=== PATIENT | male | born 1965 ===

== ENCOUNTER → 2023-07-16 09:21 | Outpatient (CLI) | payer SELFPAY | PROVIDERS: PCP Family Medicine; Visit Provider Family Medicine | DX: R10.9 Unspecified abdominal pain (principal); R50.9 Fever, unspecified | CPT/HCPCS: 87086 ==

== ENCOUNTER → 2023-07-16 12:09 | Outpatient (CLI) | payer OTHER, SELFPAY ==
--- NOTE | 2023-07-16 | DI.US.S_ITS ---
PROCEDURE: US RENAL COMPLETE INDICATIONS: FLANK PAIN, FEVER TECHNIQUE: Real-time scanning was performed of the kidneys and bladder, with image documentation. COMPARISON: None. FINDINGS: Kidneys: Kidneys are normal in size. Right kidney measures 8.3 cm long; left kidney measures 9.9 cm long. Right renal cortical thickness is 1.5 cm; left renal cortical thickness is 2.0 cm. Inferior pole right kidney is not seen. Left kidney is not well seen. Renal cortical echotexture is normal as visualized. No hydronephrosis or nephrolithiasis. No suspicious solid mass lesions. Bladder: Pre-void bladder volume is 93 mL. Post-void residual is 4 mL. Pre-void images demonstrate no intraluminal masses or stones. On pre-void images, no ureteral jets are noted with color Doppler interrogation. (Of note, ureteral jets may not be detectable in up to 25% of cases due to insufficient differences in specific gravity between ureteral and bladder urine). Miscellaneous: No free pelvic fluid. IMPRESSION: 1. Limited examination demonstrating no definite acute process. Dictated by: Joy Mosher M.D. on 07/16/2023 at 14:37 Approved by: Joy Mosher M.D. on 07/16/2023 at 14:39
[2023-07-16 14:16] LABS: Hematocrit 29.9 % (41-53); Hemoglobin 9.5 g/dL (13.5-17.5); Mean Corpuscular HGB Conc 31.8 % (30-36); Mean Corpuscular Hemoglobin 30.9 PG (26-34); Mean Corpuscular Volume 97.1 fL (80-100); Platelet Count 40 X10^3/uL (150-400); Red Blood Cell Count 3.08 X10^6/uL (4.5-5.9); Red Cell Distribution Width 16.4 % (11.6-14.8)
[2023-07-16 14:37] LABS: Alanine Aminotransferase 43 IU/L (<50); Albumin 3.4 g/dL (3.5-5.0); Alkaline Phosphatase 87 U/L (38-126); Aspartate Aminotransferase 54 IU/L (17-59); BUN Creatinine Ratio 14.7 (6-22); Bilirubin Total 0.6 mg/dL (0.2-1.3); Blood Urea Nitrogen 14 mg/dL (9-20); Calcium 8.8 mg/dL (8.4-10.2); Carbon Dioxide 25 mmol/L (22-32); Chloride 97 mmol/L (98-107); Estimated Glomerular Filt Rate > 60 mL/min (>60); Globulin 3.5 g/dL (1.7-4.1); Glucose 109 mg/dL (70-100); HEMOLYSIS < 15 (0-50); Potassium 3.5 mmol/L (3.4-5.1); Sodium 132 mmol/L (137-145); Total Protein 6.9 g/dL (6.3-8.2)
[2023-07-16 14:45] LABS: Add Manual Diff / Slide Review YES; White Blood Cell Count 112.1 X10^3/uL (4.5-11.0)
[2023-07-16 15:13] LABS: Neutrophils Absolute Manual 2242 /uL (3000-5900); Total Cells Counted 100
[2023-07-16 15:14] LABS: Anisocytosis 1+; Smudge Cells 1+
[2023-07-16 15:16] LABS: Platelet Estimate Decreased on smear
== END ==
PROVIDERS: PCP Family Medicine; Referring Provider Family Medicine; Visit Provider Family Medicine
DX: R50.9 Fever, unspecified (principal); R10.9 Unspecified abdominal pain
CPT/HCPCS: 36415; 76770; 80053; 85007; 85025; 87086

== ENCOUNTER 2023-07-25 12:36 | Emergency (ER) | payer OTHER, SELFPAY ==
[2023-07-25] VITALS (65 sets, daily range): BP systolic 81–177; BP diastolic 50–92; PULSE 79–133; RESP 0–32; TEMP 36.9–40.2; O2SAT 50–99; BMI 25.7
--- NOTE | 2023-07-25 12:54 | DI.RAD.S_ITS ---
PROCEDURE: XR CHEST 1V INDICATIONS: SOB TECHNIQUE: One view of the chest was acquired. COMPARISON: None. FINDINGS: Surgical changes and devices: None. Lungs and pleura: Submaximal inspiration. Patchy bilateral atelectasis. No pleural effusions or pneumothorax. Mediastinum: Mediastinal contours appear normal. Heart size is normal. Bones and chest wall: No suspicious bony lesions. Overlying soft tissues appear unremarkable. IMPRESSION: Submaximal inspiration with patchy bilateral atelectasis. Dictated by: Andrew Montero M.D. on 07/25/2023 at 13:39 Approved by: Andrew Montero M.D. on 07/25/2023 at 13:41
--- NOTE | 2023-07-25 12:54 | DI.CT.S_ITS ---
PROCEDURE: CT ANGIO CHEST PE PROTOCOL INDICATIONS: assess for PE, PNA, mestastatic disease TECHNIQUE: After the administration of intravenous contrast, 2 mm thick sections acquired from the pulmonary apices to the posterior costophrenic angles. 3-dimensional maximum intensity projection (MIP) coronal and sagittal reformats were then acquired through the thorax. For radiation dose reduction, the following was used: automated exposure control, adjustment of mA and/or kV according to patient size. COMPARISON: None. FINDINGS: Image quality: Diagnostic. Pulmonary arteries: Pulmonary arteries are normal in size, and demonstrate no intraluminal filling defects to suggest central pulmonary embolism. Lower Neck: No enlarged lymph nodes. Thyroid: No thyroid nodules which require sonographic follow up, per consensus guidelines. Axillae: No enlarged lymph nodes. Chest Wall: Unremarkable. Bones: Unremarkable. Lungs and Pleura: Small bilateral pleural effusions. Compressive bibasilar atelectasis. Heart: Heart size is normal. No pericardial effusion. Thoracic Vessels: No aortic aneurysm. Mediastinum and Letty: Shotty nonspecific mediastinal and hilar adenopathy. Esophagus: No wall thickening. No hiatal hernia. Upper Abdomen: Liver and spleen incompletely imaged. Splenomegaly. Question hepatomegaly. IMPRESSION: 1. No acute pulmonary emboli. 2. Small bilateral pleural effusions. Bibasilar atelectasis. 3. Shotty mediastinal and hilar adenopathy, nonspecific. 4. Splenomegaly, question hepatomegaly. Dictated by: Andrew Montero M.D. on 07/25/2023 at 14:11 Approved by: Andrew Montero M.D. on 07/25/2023 at 14:21
--- NOTE | 2023-07-25 13:02 | ED_ITS ---
HPI - General Adult <Pedro Munoz MD - Last Filed: 07/26/23 07:50> General Chief complaint: Shortness of Breath/Dyspnea Stated complaint: shallow breath, hand,feet blue, Dx Leukemia Time Seen by Provider: 07/25/23 12:42 Source: patient and family Mode of arrival: Wheelchair History of Present Illness HPI narrative: 58-year-old male presents with shortness of breath, fever, flank pain in the setting of recent diagnosis of leukemia. Spouse provides history as patient is dyspneic. They state they recently tried a cleansed that involved a bacteria, possibly Enterococcus faecalis. In this setting, patient had 3 weeks of fever. He was started on Augmentin 2 days ago and took 2 doses. However, he recently was diagnosed with a potential leukemia, for which he has not started treatment. He started becoming short of breath in the last day. No leg swelling or leg pain. He had recent drive to [place]. No personal or family history of blood clots. No chest or abdominal pain. No vomiting or diarrhea. He has cough. Patient is critically ill, hypoxic to 70s, and we are immediately initiated aggressive treatment and work up. Please see my extensive ED course for discussion. Per review of chart, patient had leukocytosis to over 112 on July 16, with anemia to 9.5, platelets of 40. He takes [place] thyroid for hypothyroidism. Related Data Previous Rx's Medication Instructions Recorded amoxicillin 875 mg-potassium 1 tab PO Q12H #14 tabs 07/23/23 clavulanate 125 mg tablet Allergies Allergy/AdvReac Type Severity Reaction Status Date / Time No Known Drug Allergies Allergy Unverified 07/16/23 08:57 Review of Systems <Pedro Munoz MD - Last Filed: 07/26/23 07:50> Review of Systems Narrative: Constitutional: +fever, no chills Eyes: no visual disturbance, no discharge Ears, Nose, Mouth, Throat: no rhinorrhea, no sore throat Cardiovascular: no chest pain, no palpitations Respiratory: + cough, + shortness of breath Gastrointestinal: no abdominal pain, no vomiting, no diarrhea Genitourinary: no dysuria, no hematuria Musculoskeletal: + back pain, no neck stiffness Skin: no rash, no wound Neurological: no focal weakness, no focal numbness Patient History <Pedro Munoz MD - Last Filed: 07/26/23 07:50> Medical History (Updated 07/25/23 @ 23:25 by Nkaia Rivas DO) Atypical lymphocytosis Fever Bilateral flank pain Social History Smoking Status: Former smoker Smoking Status: Former smoker Substance Use Type: does not use Exam <Pedro Munoz MD - Last Filed: 07/26/23 07:50> Narrative Exam Narrative: Const: patient appears dyspneic and toxic; he is able to speak in short sentences Eyes: PERRLA, EOMI ENT: mucous membranes moist Neck: supple, non-tender Resp: tachypnea to high 20s with respiratory distress; crackles bilateral lower lobes Card: regular rate and rhythm, no murmurs Abd: non tender diffusely, no rigidity or rebound or guarding Back: no T or L spine tenderness, no CVA tenderness bilaterally Extrem: no deformities, no swelling bilateral lower extremities, 2+ distal pulses all extremities Neuro: ANOx4, heel cutter grossly intact, grossly intact sensation and strength all extremities Skin: no rash, warm and dry; appears pale Initial Vital Signs Initial Vital Signs: Vital Signs Temperature 101.4 F H 07/25/23 12:45 Pulse Rate 91 H 07/25/23 12:45 Respiratory Rate 32 H 07/25/23 12:45 Blood Pressure 166/85 H 07/25/23 12:45 Pulse Oximetry 78 L 07/25/23 12:45 Oxygen Delivery Method Room Air 07/25/23 12:45 <Nakia Rivas DO - Last Filed: 07/26/23 06:24> Initial Vital Signs Initial Vital Signs: Vital Signs Temperature 101.4 F H 07/25/23 12:45 Pulse Rate 91 H 07/25/23 12:45 Respiratory Rate 32 H 07/25/23 12:45 Blood Pressure 166/85 H 07/25/23 12:45 Pulse Oximetry 78 L 07/25/23 12:45 Oxygen Delivery Method Room Air 07/25/23 12:45 Procedures <Pedro Munoz MD - Last Filed: 07/26/23 07:50> Intubation Time out performed: Yes sedative: Ketamine Mg Given: 100 paralytic: Rocuronium Mg Given: 100 Laryngoscope: other (Glidescope 4 blade) ET Tube Size: 7.5 Tube Secured Depth (cm): 23 Tube Secured Location: teeth Tube Placement Confirmation: Visualized tube passing through cords, Equal breath sounds bilaterally, No breath sounds over epigastrium and Chest Xray Patient Tolerated Procedure: Well Additional Comments: This was an emergent procedure. I left high-flow nasal cannula on during procedure for apneic oxygenation and bag mask ventilated patient as well prior to apneic phase and during it in the setting of frequent dips in SpO2 to 70s to 80s. Patient's oxygenation improved with this, and remained improved with intubation. Patient intubated on 1st attempt. Propofol drip being started. Please note my additional signing of this patient's entire note is to add this procedure as an addendum. Course <Pedro Munoz MD - Last Filed: 07/26/23 07:50> Course Course Narrative: I have considered a broad differential for this critically ill patient, with hypoxic respiratory failure and fever, including but not limited to sepsis, pneumonia, pulmonary embolism, tumor lysis syndrome, blast crisis, drug reaction, electrolyte derangements, renal failure, UTI, among others. I am immediately initiating aggressive septic workup with fluids, vancomycin, Zosyn, along with anticipation of CTA PE study once patient is sufficiently stabilized. He arrives setting 70s on room air, but now on 6 L is starting to stabilize, satting mid 90s and appearing more comfortable. EKG normal sinus rhythm without acute ischemia or immediately concerning interval prolongation. Initial labs with substantial leukocytosis to nearly 300, anemia of 7.4, platelets of 21. INR elevated to 1.4. PTT within normal limits. Chemistry with severe hyponatremia, hypochloremia, hypocalcemia in the setting of hypoalbuminemia, ALT elevation, troponin elevated, in the setting of no clear chest pain or EKG changes. This may be NSTEMI type 2. I am trending CBC, chemistry, troponin. I am very concerned for blast crisis given these labs and have requested membership secretary search for HemOnc consult with anticipation of transfer immediately. Patient is currently stable for CT, and we are taking him to CTA. He remains on 6 L nasal cannula. Radiology review of CTA PE images below: FINDINGS: Image quality: Diagnostic. Pulmonary arteries: Pulmonary arteries are normal in size, and demonstrate no intraluminal filling defects to suggest central pulmonary embolism. Lower Neck: No enlarged lymph nodes. Thyroid: No thyroid nodules which require sonographic follow up, per consensus guidelines. Axillae: No enlarged lymph nodes. Chest Wall: Unremarkable. Bones: Unremarkable. Lungs and Pleura: Small bilateral pleural effusions. Compressive bibasilar atelectasis. Heart: Heart size is normal. No pericardial effusion. Thoracic Vessels: No aortic aneurysm. Mediastinum and Letty: Shotty nonspecific mediastinal and hilar adenopathy. Esophagus: No wall thickening. No hiatal hernia. Upper Abdomen: Liver and spleen incompletely imaged. Splenomegaly. Question hepatomegaly. IMPRESSION: 1. No acute pulmonary emboli. 2. Small bilateral pleural effusions. Bibasilar atelectasis. 3. Shotty mediastinal and hilar adenopathy, nonspecific. 4. Splenomegaly, question hepatomegaly. Dictated by: Andrew Montero M.D. on 07/25/2023 at 14:[address], patient appeared overall stable. No clear current evidence of bleeding. No headache. No neurovascular deficits. However, he ultimately required increase in oxygen support to non-rebreather. Given this, I called RT to discuss initiating HFNC. HFNC initiated, with patient on 47L but appearing stable. He remains comfortable. Staff has been working to find an Oncology consult, but this is proving difficult. Repeat CBC with improvement in leukocytosis, though worsening anemia to 6.2, worsening thrombocytopenia. Still no headache or evidence of bleeding or focal neurologic deficits. I spoke with transfer center at 4:14PM requesting Oncology consult. I spoke with Dr. Meyers, of ICU at , reviewing case. She agrees with ICU transfer and Oncology consult. Transfer center has been working on this. We will continue holding transfusions or hydroxyurea pending Oncology consult. I spoke with Dr. Baugh of Oncology, reviewing case. Per our discussion, I will discuss with lab to see if there is any smear we can add, despite difficulty. We will give allopurinol 300mg PO BID for load. I will also add fibrinogen. I will give vitamin K. Note patient still with no headache or focal neurologic deficits. Dr. Baugh agrees otherwise with work up/treatment given. We will NOT give transfusions pending more information on differential. If blasts are not apparent on lab reassessment, giving 1u PRBC would be reasonable; if they are, we will not. We will give platelets if less than 10. At the end of the above conversation, I was told patient looked to be acutely decompensating. He had been resting comfortably then became unresponsive and hypoxic to 60s-70s despite HFNC. I immediately assessed and intubated him, with rocuronium and ketamine. I confirmed ETT placement on CXR, withdrawing slightly. He will be taken emergently to CT scanner. I udpated transfer center. I called lab to request smear. I am adding ABG. I am requesting repeat STAT CBC and chemistry. I am requesting hCT and CT chest to assess for ICH or aspiration. We have HOB at 30 degre I have been told by lab difft is available, now clear that lymphocytes are very predominant. Blasts present and increasing. This remains consistent with my concern for blast crisis. HCT on my assessment shows clear, large ICH. I am concerned this involves brainstem. Patient had no headache and had intact neurovascular exam during my many assessments. I suspect he has had a spontaneous bleed. Platelet transfusions are NOT available at this institution, which I have confirmed. I have requested hypertonics, TXA, PCC. I am ordering labetlol and nicardipine gtt. Tanya (spouse) is at bedside, and I have updated her throughout. I spoke with Francesco at [facility] pharmacy. I will give 4000u PCC. I have requested STAT NSGY consult. Radiology called me and stated upwards transtentorial herniation present on hCT, in addition to large bleed. I have requested we increase minute ventilation and repeat gas, with PCO2 currently near 50. We are giving 300mL hypertonics over 20min. Radiology read below of head and repeat chest CTs: Head CT: FINDINGS: Image quality: Diagnostic CSF spaces: There is effacement of the basal cisterns and dilation of the temporal horns. Volume: Generally maintained. Brain: Hemorrhage centered in the 4th ventricle, likely extending into brainstem and cerebellar parenchyma, with some components in the basal ganglia and supra tentorial cisterns. Craniofacial structures: No paranasal sinus opacification. IMPRESSION: Fourth ventricle hemorrhage, with parenchymal extension, including some components in the supratentorial space. There is upward transtentorial herniation, and hydrocephalus. Consider further workup for underlying etiologies, such as mass or vascular, and neuro surgical consultation. Called to the ED. Dictated by: Brian Salazar M.D. on 07/25/2023 at 19:[address]: FINDINGS: Image quality: Diagnostic Lungs and pleura: ET tube terminates in the mid trachea. Enteric tube terminates in the proximal stomach and could be advanced to secure positioning. Bibasilar consolidations have slightly increased even in the short interval. Upper lobe septal thickening and mild opacities also seen. Small effusions. Mediastinum, heart, and esophagus: Not well evaluated on this noncontrast imaging. No pathologic lymph nodes by size criteria. Prominent lymph nodes may be reactive in this setting. Chest wall and thyroid: Unremarkable Upper abdomen: No gross abnormality on these noncontrast images. Bones: Degenerative findings, no acute or suspicious changes. IMPRESSION: Bibasilar consolidations have slightly increased. These are presumed to be infectious/inflammatory, possibly aspiration as well. Small pleural effusions. Upper lobe involvement also seen to a milder extent. Consider future imaging surveillance to assess for resolution. ET tube is in appropriate position. Consider advancement of the enteric tube, which currently terminates in the proximal stomach. Other findings above. Dictated by: Brian Salazar M.D. on 07/25/2023 at 20:17 Patient hyperthermic. Ordering IV tylenol. Vent being reassessed frequently with RTs at bedside. I spoke with Francine Aguila, reviewing case on phone. He states this is not a survivable event. He states patient is likely brain at this point and that there would be no clear clinical benefit to transfer. VBG with worsening respiratory acidosis. I am increasing RR to 30 and TV to 500mL. RT working on this and will trend gas. BP is dropping. We stopped all anti-hypertensives and propofol. I am now initiating NE gtt to keep pressures to systolic 90. I am updating . Spouse Tanya has been extremely impressive throughout this process. She has excellent insight into case. She is comfortable with care we are providing and fully aware of the critical nature of the situation, understanding patient is highly likely to pass away. She is discussing goals of care with family. I spoke with Dr. Cruz of NSGY at who recommends txf via flight to [facility]. We will give hypertonic saline gtt and mannitol bolus. I am discussing with pharmacy. Staff aware of emergent flight. They are arranging. Dr. Cruz has called me back and stated on his review of imaging he now feels bleed is nearly 100% fatal. He is offering for us to fly to [facility] but thinks intervention is extremely unlikely. I am updating family. Spouse Tanya has stated she does NOT want to pursue transfer. She would like to pursue palliative care here. I have had several discussions with her and her mother at bedside regarding this. I think this is an appropriate choice at this point. Family is still en route (daughter may arrive). I am signing out to Dr. Kwon with plan to continue palliative care in ER pending this. I suspect that when aggressive treatment is withdraw, patient will rapidly pass away. In this setting, we are holding additional new treatments. Family understands patient is at risk of herniation and at any time. On review of this very sad case, this patient presents with what appears to be rapidly worsening blast crisis, with extensive workup and treatment as above, with ensuing spontaneous ICH that is almost certainly not survival. In this setting, family strongly prefers palliative care, which I agree is a very reasonable decision. Signed out with this plan. CRITICAL CARE: I spent 185 minutes assessing, resuscitating, reassessing this patient, interpreting studies, speaking with family consultants, outside of procedures, in the setting of blast crisis with ensuing ICH as above. Orders Ordered: Discontinued Medications Acetaminophen (Acetaminophen 325 Mg Tablet) 650 mg PO NOW ONE Stop: 07/25/23 17:58 Last Admin: 07/25/23 20:23 Dose: Not Given Documented By: ANAHY Allopurinol (Allopurinol 100 Mg Tablet) 300 mg PO NOW ONE Stop: 07/25/23 19:19 Last Admin: 07/25/23 20:23 Dose: Not Given Documented By: ANAHY Sodium Chloride (Normal Saline 0.9%) 1,000 mls @ 1,000 mls/hr IV BOLUS ONE Stop: 07/25/23 13:54 Last Admin: 07/25/23 14:29 Dose: Not Given Documented By: ESTHELA Piperacillin Sod/Tazobactam (Sod 4.5 gm/ Sodium Chloride) 100 mls @ 200 mls/hr IV NOW ONE Stop: 07/25/23 12:55 Last Infusion: 07/25/23 14:16 Dose: Infused Documented By: Admin: 07/25/23 13:19 Dose: 200 mls/hr Documented By: ESTHELA Vancomycin HCl (Vancomycin) 1,000 mg in 200 mls @ 200 mls/hr IV NOW ONE Stop: 07/25/23 13:53 Last Infusion: 07/25/23 15:22 Dose: Infused Documented By: Admin: 07/25/23 14:01 Dose: 200 mls/hr Documented By: ESTHELA Sodium Chloride (Normal Saline 0.9%) 1,000 mls @ 1,000 mls/hr IV BOLUS ONE Stop: 07/25/23 13:53 Last Infusion: 07/25/23 14:26 Dose: Infused Documented By: Admin: 07/25/23 13:16 Dose: 1,000 mls/hr Documented By: ESTHELA Propofol (Propofol) 1,000 mg in 100 mls @ 5.307 mls/hr IV TITRATE LIAM; Protocol Last Titration: 07/25/23 20:21 Dose: 0 mcg/kg/min, 0 mls/hr Documented By: Admin: 07/25/23 19:53 Dose: 10 mcg/kg/min, 5.307 mls/hr Documented By: ANAHY Phytonadione 10 mg/ Sodium (Chloride) 101 mls @ 202 mls/hr IV NOW ONE Stop: 07/25/23 19:19 Last Admin: 07/25/23 20:23 Dose: Not Given Documented By: ANAHY Sodium Chloride (Hypertonic Saline 3%) 50 mls @ 600 mls/hr IV NOW ONE Stop: 07/25/23 19:49 Last Infusion: 07/25/23 20:16 Dose: Infused Documented By: Admin: 07/25/23 19:54 Dose: 600 mls/hr Documented By: ANAHY Tranexamic Acid 1,000 mg/ (Sodium Chloride) 100 mls @ 200 mls/hr IV NOW ONE Stop: 07/25/23 20:17 Last Infusion: 07/25/23 21:00 Dose: Infused Documented By: Admin: 07/25/23 19:56 Dose: 200 mls/hr Documented By: ANAHY Phytonadione 10 mg/ Sodium (Chloride) 101 mls @ 202 mls/hr IV NOW ONE Stop: 07/25/23 19:56 Last Admin: 07/25/23 20:23 Dose: Not Given Documented By: ANAHY Prothrombin Complex Concent ( Human) 3,500 unit/Miscellaneous 140 mls @ 636.847 mls/hr IV NOW ONE; Protocol Stop: 07/25/23 20:11 Last Infusion: 07/25/23 22:15 Dose: Infused Documented By: Admin: 07/25/23 21:35 Dose: 3 unit/kg/min, 636.847 mls/hr Documented By: ESTHELA Nicardipine HCl 25 mg/ Sodium (Chloride) 250 mls @ 50 mls/hr IV TITRATE LIAM; Protocol Last Admin: 07/25/23 20:59 Dose: Not Given Documented By: ESTHELA Acetaminophen (Ofirmev) 1,000 mg in 100 mls @ 400 mls/hr IV NOW ONE Stop: 07/25/23 20:22 Last Infusion: 07/25/23 21:00 Dose: Infused Documented By: Admin: 07/25/23 20:12 Dose: 400 mls/hr Documented By: ANAHY Sodium Chloride (Hypertonic Saline 3%) 250 mls @ 750 mls/hr IV NOW ONE Stop: 07/25/23 20:37 Last Infusion: 07/25/23 21:00 Dose: Infused Documented By: Admin: 07/25/23 20:19 Dose: 750 mls/hr Documented By: ANAHY NOREPINEPHRINE BITARTRATE/D5W (Levophed) 4 mg in 250 mls @ 33.169 mls/hr IV TITRATE LIAM; Protocol Last Titration: 07/25/23 21:02 Dose: 0.14 mcg/kg/min, 45 mls/hr Documented By: Titration: 07/25/23 20:57 Dose: 0.11 mcg/kg/min, 37.5 mls/hr Documented By: Admin: 07/25/23 20:44 Dose: 0.09 mcg/kg/min, 30 mls/hr Documented By: ESTHELA Ketamine HCl (Ketamine 500 Mg/5 Ml Inj) 100 mg IV NOW ONE Stop: 07/25/23 19:23 Last Admin: 07/25/23 19:27 Dose: 100 mg Documented By: ANUSHA Labetalol HCl (Labetalol 20 Mg/4 Ml Syringe) 10 mg IV NOW ONE Stop: 07/25/23 20:04 Last Admin: 07/25/23 20:13 Dose: 10 mg Documented By: ANAHY Morphine Sulfate (Morphine 4 Mg/Ml Inj) 4 mg IV NOW ONE Stop: 07/25/23 22:55 Last Admin: 07/25/23 22:57 Dose: 4 mg Documented By: ESTHELA Ondansetron HCl (Ondansetron 4 Mg/2 Ml Inj) 4 mg IV NOW PRN PRN Reason: Nausea And Vomiting Ondansetron HCl (Ondansetron 4 Mg Odt) 4 mg SL NOW PRN PRN Reason: Nausea And Vomiting Rocuronium [place] (Rocuronium 50 Mg/5 Ml Inj) 100 mg IV NOW ONE Stop: 07/25/23 19:28 Last Admin: 07/25/23 19:28 Dose: 100 mg Documented By: BS Vital Signs Vital signs: Vital Signs - 8 hr 07/25/23 22:24 07/25/23 22:25 07/25/23 22:25 Temperature 102.2 F H 102.2 F H Pulse Rate 79 79 Respiratory Rate 30 H 30 H Blood Pressure 110/64 Pulse Oximetry 99 99 07/25/23 22:30 07/25/23 22:30 07/25/23 22:35 Temperature 102.0 F H 102.0 F H Pulse Rate 81 83 Respiratory Rate 30 H 30 H Blood Pressure 114/66 Pulse Oximetry 99 99 07/25/23 22:35 07/25/23 22:40 07/25/23 22:40 Temperature 102.0 F H Pulse Rate 84 Respiratory Rate 30 H Blood Pressure 116/66 119/64 Pulse Oximetry 99 07/25/23 22:45 07/25/23 22:45 07/25/23 22:50 Temperature 101.8 F H 101.8 F H Pulse Rate 89 90 Respiratory Rate 30 H 30 H Blood Pressure 120/71 Pulse Oximetry 99 99 07/25/23 22:50 07/25/23 22:55 07/25/23 22:55 Temperature 101.7 F H Pulse Rate 90 Respiratory Rate 30 H Blood Pressure 117/69 122/70 Pulse Oximetry 99 07/25/23 23:00 07/25/23 23:01 07/25/23 23:01 Temperature Pulse Rate 84 86 Respiratory Rate 13 4 L Blood Pressure 81/59 L Pulse Oximetry 97 83 L <Nakia Rivas DO - Last Filed: 07/26/23 06:24> Orders Ordered: Discontinued Medications Acetaminophen (Acetaminophen 325 Mg Tablet) 650 mg PO NOW ONE Stop: 07/25/23 17:58 Last Admin: 07/25/23 20:23 Dose: Not Given Documented By: HNG Allopurinol (Allopurinol 100 Mg Tablet) 300 mg PO NOW ONE Stop: 07/25/23 19:19 Last Admin: 07/25/23 20:23 Dose: Not Given Documented By: ANAHY Sodium Chloride (Normal Saline 0.9%) 1,000 mls @ 1,000 mls/hr IV BOLUS ONE Stop: 07/25/23 13:54 Last Admin: 07/25/23 14:29 Dose: Not Given Documented By: ES Piperacillin Sod/Tazobactam (Sod 4.5 gm/ Sodium Chloride) 100 mls @ 200 mls/hr IV NOW ONE Stop: 07/25/23 12:55 Last Infusion: 07/25/23 14:16 Dose: Infused Documented By: Admin: 07/25/23 13:19 Dose: 200 mls/hr Documented By: ES Vancomycin HCl (Vancomycin) 1,000 mg in 200 mls @ 200 mls/hr IV NOW ONE Stop: 07/25/23 13:53 Last Infusion: 07/25/23 15:22 Dose: Infused Documented By: Admin: 07/25/23 14:01 Dose: 200 mls/hr Documented By: ESTHELA Sodium Chloride (Normal Saline 0.9%) 1,000 mls @ 1,000 mls/hr IV BOLUS ONE Stop: 07/25/23 13:53 Last Infusion: 07/25/23 14:26 Dose: Infused Documented By: Admin: 07/25/23 13:16 Dose: 1,000 mls/hr Documented By: ESTHELA Propofol (Propofol) 1,000 mg in 100 mls @ 5.307 mls/hr IV TITRATE LIAM; Protocol Last Titration: 07/25/23 20:21 Dose: 0 mcg/kg/min, 0 mls/hr Documented By: Admin: 07/25/23 19:53 Dose: 10 mcg/kg/min, 5.307 mls/hr Documented By: ANAHY Phytonadione 10 mg/ Sodium (Chloride) 101 mls @ 202 mls/hr IV NOW ONE Stop: 07/25/23 19:19 Last Admin: 07/25/23 20:23 Dose: Not Given Documented By: ANAHY Sodium Chloride (Hypertonic Saline 3%) 50 mls @ 600 mls/hr IV NOW ONE Stop: 07/25/23 19:49 Last Infusion: 07/25/23 20:16 Dose: Infused Documented By: Admin: 07/25/23 19:54 Dose: 600 mls/hr Documented By: ANAHY Tranexamic Acid 1,000 mg/ (Sodium Chloride) 100 mls @ 200 mls/hr IV NOW ONE Stop: 07/25/23 20:17 Last Infusion: 07/25/23 21:00 Dose: Infused Documented By: Admin: 07/25/23 19:56 Dose: 200 mls/hr Documented By: ANAHY Phytonadione 10 mg/ Sodium (Chloride) 101 mls @ 202 mls/hr IV NOW ONE Stop: 07/25/23 19:56 Last Admin: 07/25/23 20:23 Dose: Not Given Documented By: ANAHY Prothrombin Complex Concent ( Human) 3,500 unit/Miscellaneous 140 mls @ 636.847 mls/hr IV NOW ONE; Protocol Stop: 07/25/23 20:11 Last Infusion: 07/25/23 22:15 Dose: Infused Documented By: Admin: 07/25/23 21:35 Dose: 3 unit/kg/min, 636.847 mls/hr Documented By: ESTHELA Nicardipine HCl 25 mg/ Sodium (Chloride) 250 mls @ 50 mls/hr IV TITRATE LIAM; Protocol Last Admin: 07/25/23 20:59 Dose: Not Given Documented By: ESTHELA Acetaminophen (Ofirmev) 1,000 mg in 100 mls @ 400 mls/hr IV NOW ONE Stop: 07/25/23 20:22 Last Infusion: 07/25/23 21:00 Dose: Infused Documented By: Admin: 07/25/23 20:12 Dose: 400 mls/hr Documented By: ANAHY Sodium Chloride (Hypertonic Saline 3%) 250 mls @ 750 mls/hr IV NOW ONE Stop: 07/25/23 20:37 Last Infusion: 07/25/23 21:00 Dose: Infused Documented By: Admin: 07/25/23 20:19 Dose: 750 mls/hr Documented By: ANAHY NOREPINEPHRINE BITARTRATE/D5W (Levophed) 4 mg in 250 mls @ 33.169 mls/hr IV TITRATE LIAM; Protocol Last Titration: 07/25/23 21:02 Dose: 0.14 mcg/kg/min, 45 mls/hr Documented By: Titration: 07/25/23 20:57 Dose: 0.11 mcg/kg/min, 37.5 mls/hr Documented By: Admin: 07/25/23 20:44 Dose: 0.09 mcg/kg/min, 30 mls/hr Documented By: ESTHELA Ketamine HCl (Ketamine 500 Mg/5 Ml Inj) 100 mg IV NOW ONE Stop: 07/25/23 19:23 Last Admin: 07/25/23 19:27 Dose: 100 mg Documented By: ANUSHA Labetalol HCl (Labetalol 20 Mg/4 Ml Syringe) 10 mg IV NOW ONE Stop: 07/25/23 20:04 Last Admin: 07/25/23 20:13 Dose: 10 mg Documented By: ANAHY Morphine Sulfate (Morphine 4 Mg/Ml Inj) 4 mg IV NOW ONE Stop: 07/25/23 22:55 Last Admin: 07/25/23 22:57 Dose: 4 mg Documented By: ESTHELA Ondansetron HCl (Ondansetron 4 Mg/2 Ml Inj) 4 mg IV NOW PRN PRN Reason: Nausea And Vomiting Ondansetron HCl (Ondansetron 4 Mg Odt) 4 mg SL NOW PRN PRN Reason: Nausea And Vomiting Rocuronium [place] (Rocuronium 50 Mg/5 Ml Inj) 100 mg IV NOW ONE Stop: 07/25/23 19:28 Last Admin: 07/25/23 19:28 Dose: 100 mg Documented By: AN[facility] Vital Signs Vital signs: Vital Signs - 8 hr 07/25/23 22:24 07/25/23 22:25 07/25/23 22:25 Temperature 102.2 F H 102.2 F H Pulse Rate 79 79 Respiratory Rate 30 H 30 H Blood Pressure 110/64 Pulse Oximetry 99 99 07/25/23 22:30 07/25/23 22:30 07/25/23 22:35 Temperature 102.0 F H 102.0 F H Pulse Rate 81 83 Respiratory Rate 30 H 30 H Blood Pressure 114/66 Pulse Oximetry 99 99 07/25/23 22:35 07/25/23 22:40 07/25/23 22:40 Temperature 102.0 F H Pulse Rate 84 Respiratory Rate 30 H Blood Pressure 116/66 119/64 Pulse Oximetry 99 07/25/23 22:45 07/25/23 22:45 07/25/23 22:50 Temperature 101.8 F H 101.8 F H Pulse Rate 89 90 Respiratory Rate 30 H 30 H Blood Pressure 120/71 Pulse Oximetry 99 99 07/25/23 22:50 07/25/23 22:55 07/25/23 22:55 Temperature 101.7 F H Pulse Rate 90 Respiratory Rate 30 H Blood Pressure 117/69 122/70 Pulse Oximetry 99 07/25/23 23:00 07/25/23 23:01 07/25/23 23:01 Temperature Pulse Rate 84 86 Respiratory Rate 13 4 L Blood Pressure 81/59 L Pulse Oximetry 97 83 L Medical Decision Making <Pedro Munoz MD - Last Filed: 07/26/23 07:50> Lab Data 07/25/23 19:57 07/25/23 19:57 Labs: Lab Results 07/25/23 07/25/23 07/25/23 Range/Units 12:50 12:56 13:18 WBC 288.2 H* (4.5-11.0) X10^3/uL RBC 2.63 L (4.5-5.9) X10^6/uL Hgb 7.4 L (13.5-17.5) g/dL Hct 24.9 L (41-53) % MCV 94.6 (80-100) fL MCH 28.2 (26-34) PG MCHC 29.9 L (30-36) % RDW 16.8 H (11.6-14.8) % Plt Count 21 L* (150-400) X10^3/uL Neut % (Auto) Not Reportable Lymph % (Auto) Not Reportable [place] % (Auto) Not Reportable Eos % (Auto) Not Reportable Baso % (Auto) Not Reportable Lymph # (Auto) Not Reportable [place] # (Auto) Not Reportable Baso # (Auto) Not Reportable Total Counted 50 Seg Neutrophils % 4.0 L (38-70) % Band Neutrophils % (3-7) % Lymphocytes % (Manual) 66.0 H (25-45) % Atypical Lymphs % 20.0 H ( - 0) % Monocytes % (Manual) 4.0 (2-11) % Eosinophils % (Manual) (2-4) % Metamyelocytes % (-0) % Myelocytes % (-0) % Promyelocytes % 4.0 H (-0) % Blast Cells % 2.0 H (-0) % Neutrophils # (Manual) 98317 H (8567-6117) /uL RBC Morphology Normal morphology PT 16.4 H (9.4-12.5) SECONDS INR 1.4 H (0.9-1.3) APTT 27 (25.1-36.5) SECONDS Fibrinogen (238-498) mg/dL ABG Sample Site ABG pH (7.35-7.45) ABG pCO2 (35-45) mmHg ABG pO2 (80-100) mmHg ABG HCO3 (23-27) mmol/L ABG Total CO2 (23-27) mmol/L ABG O2 Saturation (95-100) % ABG Base Excess (-2-3) mmol/L VBG pH (7.33-7.43) VBG pCO2 (45-50) mmHg VBG pO2 (35-45) mmHg VBG HCO3 (24-28) mmol/L VBG Total CO2 (24-29) mmol/L VBG O2 Saturation (70-75) % VBG Base Excess (0-4) mmol/L FiO2 Sodium 113 L* D (137-145) mmol/L Potassium 5.1 D (3.4-5.1) mmol/L Chloride 83 L (98-107) mmol/L Carbon Dioxide 22 (22-32) mmol/L BUN 25 H (9-20) mg/dL Creatinine 1.00 (0.66-1.25) mg/dL Estimated GFR > 60 (>60) mL/min BUN/Creatinine Ratio 25.0 H (6-22) Glucose 120 H (70-100) mg/dL Lactate (0.7-2.1) mmol/L Uric Acid 3.8 (3.5-8.5) mg/dL Calcium 8.3 L (8.4-10.2) mg/dL Magnesium 2.1 (1.6-2.3) mg/dL Total Bilirubin 1.1 (0.2-1.3) mg/dL AST 220 H (17-59) IU/L ALT 62 H (<50) IU/L Alkaline Phosphatase 214 H D (38-126) U/L Lactate Dehydrogenase (120-246) U/L Total Creatine Kinase 2204 H (55-170) U/L Troponin I 0.436 H* (0.01-0.034) ng/mL NT-Pro-B Natriuret Pep 749 H (<125) pg/mL Total Protein 6.3 (6.3-8.2) g/dL Albumin 2.9 L (3.5-5.0) g/dL Globulin 3.4 (1.7-4.1) g/dL Albumin/Globulin Ratio 0.9 L (1.0-2.8) TSH 5.83 H (0.47-4.68) uIU/mL Urine Color Urine Appearance Urine pH (4.5-8.0) Ur Specific [place] (1.000-1.035) Urine Protein (Negative) Urine Glucose (UA) (Negative) g/dL Urine Ketones (NEGATIVE) Urine Occult Blood (Negative) Urine Nitrate (Negative) Urine Bilirubin (NEGATIVE) Urine Urobilinogen (0.2) E.U./dL Ur Leukocyte Esterase (NEGATIVE) Urine RBC (0-5/HPF) Urine WBC (0-5/HPF) Ur Squamous Epith Cells (0-5/HPF) Amorphous Sediment Urine Bacteria (None) Granular Casts (None) Ur Culture Indicated? Vol Urine Centrifuged Chlamy pneumoniae PCR Not detected (Not Detect) Adenovirus (PCR) Not detected (Not Detect) B.parapertussis DNA PCR Not detected (Not Detecte) Coronavirus OC43 (PCR) Not detected (Not Detect) Coronavirus HKU1 (PCR) Not detected (Not Detect) Coronavirus 229E (PCR) Not detected (Not Detect) SARS-CoV-2 (PCR) Not detected (Not Detecte) Coronavirus NL63 (PCR) Not detected (Not Detect) Human Metapneumovir PCR Not detected (Not Detect) Influenza Type A (PCR) Not detected (Not Detect) Influenza Type B (PCR) Not detected (Not Detect) M. pneumoniae (PCR) Not detected (Not Detect) Parainfluenza 1 (PCR) Not detected (Not Detect) Parainfluenza 2 (PCR) Not detected (Not Detect) Parainfluenza 3 (PCR) Not detected (Not Detect) Parainfluenza 4 (PCR) Not detected (Not Detect) RSV (PCR) Not detected (Not Detect) Entero/Rhino (PCR) Not detected (Not Detect) Blood Type O Positive Antibody Screen Negative 07/25/23 07/25/23 07/25/23 Range/Units 15:30 19:56 19:57 WBC 251.9 H* 326.4 H* (4.5-11.0) X10^3/uL RBC 2.15 L 2.36 L (4.5-5.9) X10^6/uL Hgb 6.2 L* 6.6 L* (13.5-17.5) g/dL Hct 20.4 L* 21.1 L (41-53) % MCV 95.0 89.7 D (80-100) fL MCH 28.8 27.9 (26-34) PG MCHC 30.3 31.1 (30-36) % RDW 17.0 H 16.8 H (11.6-14.8) % Plt Count 13 L* 26 L* (150-400) X10^3/uL Neut % (Auto) Not Reportable Not Reportable Lymph % (Auto) Not Reportable Not Reportable [place] % (Auto) Not Reportable Not Reportable Eos % (Auto) Not Reportable Not Reportable Baso % (Auto) Not Reportable Not Reportable Lymph # (Auto) Not Reportable Not Reportable [place] # (Auto) Not Reportable Not Reportable Baso # (Auto) Not Reportable Not Reportable Total Counted 100 200 Seg Neutrophils % 12.0 L D 14.5 L (38-70) % Band Neutrophils % 0.5 L (3-7) % Lymphocytes % (Manual) 8.0 L 19.0 L (25-45) % Atypical Lymphs % 73.0 H 46.0 H ( - 0) % Monocytes % (Manual) 2.0 1.5 L (2-11) % Eosinophils % (Manual) 0.5 L (2-4) % Metamyelocytes % 2.0 H (-0) % Myelocytes % 1.5 H (-0) % Promyelocytes % 1.0 H (-0) % Blast Cells % 5.0 H 13.5 H (-0) % Neutrophils # (Manual) 39943 H 08144 H (5284-7161) /uL RBC Morphology Normal morphology Normal morphology PT (9.4-12.5) SECONDS INR (0.9-1.3) APTT (25.1-36.5) SECONDS Fibrinogen 180 L (238-498) mg/dL ABG Sample Site Right radial ABG pH 7.30 L (7.35-7.45) ABG pCO2 49.2 H (35-45) mmHg ABG pO2 61 L (80-100) mmHg ABG HCO3 24 (23-27) mmol/L ABG Total CO2 26 (23-27) mmol/L ABG O2 Saturation 88 L (95-100) % ABG Base Excess -2.0 (-2-3) mmol/L VBG pH (7.33-7.43) VBG pCO2 (45-50) mmHg VBG pO2 (35-45) mmHg VBG HCO3 (24-28) mmol/L VBG Total CO2 (24-29) mmol/L VBG O2 Saturation (70-75) % VBG Base Excess (0-4) mmol/L FiO2 100 Sodium 114 L* 116 L* (137-145) mmol/L Potassium 4.5 5.1 (3.4-5.1) mmol/L Chloride 86 L 86 L (98-107) mmol/L Carbon Dioxide 25 24 (22-32) mmol/L BUN 24 H 26 H (9-20) mg/dL Creatinine 0.95 1.00 (0.66-1.25) mg/dL Estimated GFR > 60 > 60 (>60) mL/min BUN/Creatinine Ratio 25.3 H 26.0 H (6-22) Glucose 107 H 140 H (70-100) mg/dL Lactate 1.0 (0.7-2.1) mmol/L Uric Acid (3.5-8.5) mg/dL Calcium 7.2 L 7.3 L (8.4-10.2) mg/dL Magnesium (1.6-2.3) mg/dL Total Bilirubin 1.1 1.1 (0.2-1.3) mg/dL AST 185 H 223 H (17-59) IU/L ALT 54 H 60 H (<50) IU/L Alkaline Phosphatase 174 H 195 H (38-126) U/L Lactate Dehydrogenase 3513 H (120-246) U/L Total Creatine Kinase (55-170) U/L Troponin I 0.585 H* (0.01-0.034) ng/mL NT-Pro-B Natriuret Pep (<125) pg/mL Total Protein 5.2 L 5.8 L (6.3-8.2) g/dL Albumin 2.3 L 2.6 L (3.5-5.0) g/dL Globulin 2.9 3.2 (1.7-4.1) g/dL Albumin/Globulin Ratio 0.8 L 0.8 L (1.0-2.8) TSH (0.47-4.68) uIU/mL Urine Color Urine Appearance Urine pH (4.5-8.0) Ur Specific [place] (1.000-1.035) Urine Protein (Negative) Urine Glucose (UA) (Negative) g/dL Urine Ketones (NEGATIVE) Urine Occult Blood (Negative) Urine Nitrate (Negative) Urine Bilirubin (NEGATIVE) Urine Urobilinogen (0.2) E.U./dL Ur Leukocyte Esterase (NEGATIVE) Urine RBC (0-5/HPF) Urine WBC (0-5/HPF) Ur Squamous Epith Cells (0-5/HPF) Amorphous Sediment Urine Bacteria (None) Granular Casts (None) Ur Culture Indicated? Vol Urine Centrifuged Chlamy pneumoniae PCR (Not Detect) Adenovirus (PCR) (Not Detect) B.parapertussis DNA PCR (Not Detecte) Coronavirus OC43 (PCR) (Not Detect) Coronavirus HKU1 (PCR) (Not Detect) Coronavirus 229E (PCR) (Not Detect) SARS-CoV-2 (PCR) (Not Detecte) Coronavirus NL63 (PCR) (Not Detect) Human Metapneumovir PCR (Not Detect) Influenza Type A (PCR) (Not Detect) Influenza Type B (PCR) (Not Detect) M. pneumoniae (PCR) (Not Detect) Parainfluenza 1 (PCR) (Not Detect) Parainfluenza 2 (PCR) (Not Detect) Parainfluenza 3 (PCR) (Not Detect) Parainfluenza 4 (PCR) (Not Detect) RSV (PCR) (Not Detect) Entero/Rhino (PCR) (Not Detect) Blood Type Antibody Screen 07/25/23 07/25/23 07/25/23 Range/Units 20:14 20:23 20:48 WBC (4.5-11.0) X10^3/uL RBC (4.5-5.9) X10^6/uL Hgb (13.5-17.5) g/dL Hct (41-53) % MCV (80-100) fL MCH (26-34) PG MCHC (30-36) % RDW (11.6-14.8) % Plt Count (150-400) X10^3/uL Neut % (Auto) Lymph % (Auto) [place] % (Auto) Eos % (Auto) Baso % (Auto) Lymph # (Auto) [place] # (Auto) Baso # (Auto) Total Counted Seg Neutrophils % (38-70) % Band Neutrophils % (3-7) % Lymphocytes % (Manual) (25-45) % Atypical Lymphs % ( - 0) % Monocytes % (Manual) (2-11) % Eosinophils % (Manual) (2-4) % Metamyelocytes % (-0) % Myelocytes % (-0) % Promyelocytes % (-0) % Blast Cells % (-0) % Neutrophils # (Manual) (8627-2054) /uL RBC Morphology PT (9.4-12.5) SECONDS INR (0.9-1.3) APTT (25.1-36.5) SECONDS Fibrinogen (238-498) mg/dL ABG Sample Site Left radial Left radial ABG pH 7.27 L* 7.37 (7.35-7.45) ABG pCO2 48.3 H 35.0 (35-45) mmHg ABG pO2 72 L 81 (80-100) mmHg ABG HCO3 22 L 21 L (23-27) mmol/L ABG Total CO2 24 22 L (23-27) mmol/L ABG O2 Saturation 92 L 96 (95-100) % ABG Base Excess -5.0 L -5.0 L (-2-3) mmol/L VBG pH (7.33-7.43) VBG pCO2 (45-50) mmHg VBG pO2 (35-45) mmHg VBG HCO3 (24-28) mmol/L VBG Total CO2 (24-29) mmol/L VBG O2 Saturation (70-75) % VBG Base Excess (0-4) mmol/L FiO2 100 100 Sodium (137-145) mmol/L Potassium (3.4-5.1) mmol/L Chloride (98-107) mmol/L Carbon Dioxide (22-32) mmol/L BUN (9-20) mg/dL Creatinine (0.66-1.25) mg/dL Estimated GFR (>60) mL/min BUN/Creatinine Ratio (6-22) Glucose (70-100) mg/dL Lactate (0.7-2.1) mmol/L Uric Acid (3.5-8.5) mg/dL Calcium (8.4-10.2) mg/dL Magnesium (1.6-2.3) mg/dL Total Bilirubin (0.2-1.3) mg/dL AST (17-59) IU/L ALT (<50) IU/L Alkaline Phosphatase (38-126) U/L Lactate Dehydrogenase (120-246) U/L Total Creatine Kinase (55-170) U/L Troponin I (0.01-0.034) ng/mL NT-Pro-B Natriuret Pep (<125) pg/mL Total Protein (6.3-8.2) g/dL Albumin (3.5-5.0) g/dL Globulin (1.7-4.1) g/dL Albumin/Globulin Ratio (1.0-2.8) TSH (0.47-4.68) uIU/mL Urine Color Yellow Urine Appearance Clear Urine pH 5.5 (4.5-8.0) Ur Specific [place] 1.025 (1.000-1.035) Urine Protein 2+ H (Negative) Urine Glucose (UA) Negative (Negative) g/dL Urine Ketones Negative (NEGATIVE) Urine Occult Blood 2+ H (Negative) Urine Nitrate Negative (Negative) Urine Bilirubin Negative (NEGATIVE) Urine Urobilinogen 0.2 (0.2) E.U./dL Ur Leukocyte Esterase Negative (NEGATIVE) Urine RBC 5-10/hpf H (0-5/HPF) Urine WBC 1-5/hpf (0-5/HPF) Ur Squamous Epith Cells None seen (0-5/HPF) Amorphous Sediment 2+ Urine Bacteria Moderate (10-30) H (None) Granular Casts 1-5/lpf (None) Ur Culture Indicated? Specimen cultured Vol Urine Centrifuged 10ml (spun) Chlamy pneumoniae PCR (Not Detect) Adenovirus (PCR) (Not Detect) B.parapertussis DNA PCR (Not Detecte) Coronavirus OC43 (PCR) (Not Detect) Coronavirus HKU1 (PCR) (Not Detect) Coronavirus 229E (PCR) (Not Detect) SARS-CoV-2 (PCR) (Not Detecte) Coronavirus NL63 (PCR) (Not Detect) Human Metapneumovir PCR (Not Detect) Influenza Type A (PCR) (Not Detect) Influenza Type B (PCR) (Not Detect) M. pneumoniae (PCR) (Not Detect) Parainfluenza 1 (PCR) (Not Detect) Parainfluenza 2 (PCR) (Not Detect) Parainfluenza 3 (PCR) (Not Detect) Parainfluenza 4 (PCR) (Not Detect) RSV (PCR) (Not Detect) Entero/Rhino (PCR) (Not Detect) Blood Type Antibody Screen 07/25/23 Range/Units 21:42 WBC (4.5-11.0) X10^3/uL RBC (4.5-5.9) X10^6/uL Hgb (13.5-17.5) g/dL Hct (41-53) % MCV (80-100) fL MCH (26-34) PG MCHC (30-36) % RDW (11.6-14.8) % Plt Count (150-400) X10^3/uL Neut % (Auto) Lymph % (Auto) [place] % (Auto) Eos % (Auto) Baso % (Auto) Lymph # (Auto) [place] # (Auto) Baso # (Auto) Total Counted Seg Neutrophils % (38-70) % Band Neutrophils % (3-7) % Lymphocytes % (Manual) (25-45) % Atypical Lymphs % ( - 0) % Monocytes % (Manual) (2-11) % Eosinophils % (Manual) (2-4) % Metamyelocytes % (-0) % Myelocytes % (-0) % Promyelocytes % (-0) % Blast Cells % (-0) % Neutrophils # (Manual) (5895-8052) /uL RBC Morphology PT (9.4-12.5) SECONDS INR (0.9-1.3) APTT (25.1-36.5) SECONDS Fibrinogen (238-498) mg/dL ABG Sample Site ABG pH (7.35-7.45) ABG pCO2 (35-45) mmHg ABG pO2 (80-100) mmHg ABG HCO3 (23-27) mmol/L ABG Total CO2 (23-27) mmol/L ABG O2 Saturation (95-100) % ABG Base Excess (-2-3) mmol/L VBG pH 7.30 L (7.33-7.43) VBG pCO2 45.9 (45-50) mmHg VBG pO2 37 (35-45) mmHg VBG HCO3 23 L (24-28) mmol/L VBG Total CO2 24 (24-29) mmol/L VBG O2 Saturation 65 L (70-75) % VBG Base Excess -4.0 L (0-4) mmol/L FiO2 100 Sodium (137-145) mmol/L Potassium (3.4-5.1) mmol/L Chloride (98-107) mmol/L Carbon Dioxide (22-32) mmol/L BUN (9-20) mg/dL Creatinine (0.66-1.25) mg/dL Estimated GFR (>60) mL/min BUN/Creatinine Ratio (6-22) Glucose (70-100) mg/dL Lactate (0.7-2.1) mmol/L Uric Acid (3.5-8.5) mg/dL Calcium (8.4-10.2) mg/dL Magnesium (1.6-2.3) mg/dL Total Bilirubin (0.2-1.3) mg/dL AST (17-59) IU/L ALT (<50) IU/L Alkaline Phosphatase (38-126) U/L Lactate Dehydrogenase (120-246) U/L Total Creatine Kinase (55-170) U/L Troponin I (0.01-0.034) ng/mL NT-Pro-B Natriuret Pep (<125) pg/mL Total Protein (6.3-8.2) g/dL Albumin (3.5-5.0) g/dL Globulin (1.7-4.1) g/dL Albumin/Globulin Ratio (1.0-2.8) TSH (0.47-4.68) uIU/mL Urine Color Urine Appearance Urine pH (4.5-8.0) Ur Specific [place] (1.000-1.035) Urine Protein (Negative) Urine Glucose (UA) (Negative) g/dL Urine Ketones (NEGATIVE) Urine Occult Blood (Negative) Urine Nitrate (Negative) Urine Bilirubin (NEGATIVE) Urine Urobilinogen (0.2) E.U./dL Ur Leukocyte Esterase (NEGATIVE) Urine RBC (0-5/HPF) Urine WBC (0-5/HPF) Ur Squamous Epith Cells (0-5/HPF) Amorphous Sediment Urine Bacteria (None) Granular Casts (None) Ur Culture Indicated? Vol Urine Centrifuged Chlamy pneumoniae PCR (Not Detect) Adenovirus (PCR) (Not Detect) B.parapertussis DNA PCR (Not Detecte) Coronavirus OC43 (PCR) (Not Detect) Coronavirus HKU1 (PCR) (Not Detect) Coronavirus 229E (PCR) (Not Detect) SARS-CoV-2 (PCR) (Not Detecte) Coronavirus NL63 (PCR) (Not Detect) Human Metapneumovir PCR (Not Detect) Influenza Type A (PCR) (Not Detect) Influenza Type B (PCR) (Not Detect) M. pneumoniae (PCR) (Not Detect) Parainfluenza 1 (PCR) (Not Detect) Parainfluenza 2 (PCR) (Not Detect) Parainfluenza 3 (PCR) (Not Detect) Parainfluenza 4 (PCR) (Not Detect) RSV (PCR) (Not Detect) Entero/Rhino (PCR) (Not Detect) Blood Type Antibody Screen <Nakia Rivas, DO - Last Filed: 07/26/23 06:24> Lab Data Labs: Lab Results 07/25/23 07/25/23 07/25/23 Range/Units 12:50 12:56 13:18 WBC 288.2 H* (4.5-11.0) X10^3/uL RBC 2.63 L (4.5-5.9) X10^6/uL Hgb 7.4 L (13.5-17.5) g/dL Hct 24.9 L (41-53) % MCV 94.6 (80-100) fL MCH 28.2 (26-34) PG MCHC 29.9 L (30-36) % RDW 16.8 H (11.6-14.8) % Plt Count 21 L* (150-400) X10^3/uL Neut % (Auto) Not Reportable Lymph % (Auto) Not Reportable [place] % (Auto) Not Reportable Eos % (Auto) Not Reportable Baso % (Auto) Not Reportable Lymph # (Auto) Not Reportable [place] # (Auto) Not Reportable Baso # (Auto) Not Reportable Total Counted 50 Seg Neutrophils % 4.0 L (38-70) % Band Neutrophils % (3-7) % Lymphocytes % (Manual) 66.0 H (25-45) % Atypical Lymphs % 20.0 H ( - 0) % Monocytes % (Manual) 4.0 (2-11) % Eosinophils % (Manual) (2-4) % Metamyelocytes % (-0) % Myelocytes % (-0) % Promyelocytes % 4.0 H (-0) % Blast Cells % 2.0 H (-0) % Neutrophils # (Manual) 26934 H (3478-6174) /uL RBC Morphology Normal morphology PT 16.4 H (9.4-12.5) SECONDS INR 1.4 H (0.9-1.3) APTT 27 (25.1-36.5) SECONDS Fibrinogen (238-498) mg/dL ABG Sample Site ABG pH (7.35-7.45) ABG pCO2 (35-45) mmHg ABG pO2 (80-100) mmHg ABG HCO3 (23-27) mmol/L ABG Total CO2 (23-27) mmol/L ABG O2 Saturation (95-100) % ABG Base Excess (-2-3) mmol/L VBG pH (7.33-7.43) VBG pCO2 (45-50) mmHg VBG pO2 (35-45) mmHg VBG HCO3 (24-28) mmol/L VBG Total CO2 (24-29) mmol/L VBG O2 Saturation (70-75) % VBG Base Excess (0-4) mmol/L FiO2 Sodium 113 L* D (137-145) mmol/L Potassium 5.1 D (3.4-5.1) mmol/L Chloride 83 L (98-107) mmol/L Carbon Dioxide 22 (22-32) mmol/L BUN 25 H (9-20) mg/dL Creatinine 1.00 (0.66-1.25) mg/dL Estimated GFR > 60 (>60) mL/min BUN/Creatinine Ratio 25.0 H (6-22) Glucose 120 H (70-100) mg/dL Lactate (0.7-2.1) mmol/L Uric Acid 3.8 (3.5-8.5) mg/dL Calcium 8.3 L (8.4-10.2) mg/dL Magnesium 2.1 (1.6-2.3) mg/dL Total Bilirubin 1.1 (0.2-1.3) mg/dL AST 220 H (17-59) IU/L ALT 62 H (<50) IU/L Alkaline Phosphatase 214 H D (38-126) U/L Lactate Dehydrogenase (120-246) U/L Total Creatine Kinase 2204 H (55-170) U/L Troponin I 0.436 H* (0.01-0.034) ng/mL NT-Pro-B Natriuret Pep 749 H (<125) pg/mL Total Protein 6.3 (6.3-8.2) g/dL Albumin 2.9 L (3.5-5.0) g/dL Globulin 3.4 (1.7-4.1) g/dL Albumin/Globulin Ratio 0.9 L (1.0-2.8) TSH 5.83 H (0.47-4.68) uIU/mL Urine Color Urine Appearance Urine pH (4.5-8.0) Ur Specific [place] (1.000-1.035) Urine Protein (Negative) Urine Glucose (UA) (Negative) g/dL Urine Ketones (NEGATIVE) Urine Occult Blood (Negative) Urine Nitrate (Negative) Urine Bilirubin (NEGATIVE) Urine Urobilinogen (0.2) E.U./dL Ur Leukocyte Esterase (NEGATIVE) Urine RBC (0-5/HPF) Urine WBC (0-5/HPF) Ur Squamous Epith Cells (0-5/HPF) Amorphous Sediment Urine Bacteria (None) Granular Casts (None) Ur Culture Indicated? Vol Urine Centrifuged Chlamy pneumoniae PCR Not detected (Not Detect) Adenovirus (PCR) Not detected (Not Detect) B.parapertussis DNA PCR Not detected (Not Detecte) Coronavirus OC43 (PCR) Not detected (Not Detect) Coronavirus HKU1 (PCR) Not detected (Not Detect) Coronavirus 229E (PCR) Not detected (Not Detect) SARS-CoV-2 (PCR) Not detected (Not Detecte) Coronavirus NL63 (PCR) Not detected (Not Detect) Human Metapneumovir PCR Not detected (Not Detect) Influenza Type A (PCR) Not detected (Not Detect) Influenza Type B (PCR) Not detected (Not Detect) M. pneumoniae (PCR) Not detected (Not Detect) Parainfluenza 1 (PCR) Not detected (Not Detect) Parainfluenza 2 (PCR) Not detected (Not Detect) Parainfluenza 3 (PCR) Not detected (Not Detect) Parainfluenza 4 (PCR) Not detected (Not Detect) RSV (PCR) Not detected (Not Detect) Entero/Rhino (PCR) Not detected (Not Detect) Blood Type O Positive Antibody Screen Negative 07/25/23 07/25/23 07/25/23 Range/Units 15:30 19:56 19:57 WBC 251.9 H* 326.4 H* (4.5-11.0) X10^3/uL RBC 2.15 L 2.36 L (4.5-5.9) X10^6/uL Hgb 6.2 L* 6.6 L* (13.5-17.5) g/dL Hct 20.4 L* 21.1 L (41-53) % MCV 95.0 89.7 D (80-100) fL MCH 28.8 27.9 (26-34) PG MCHC 30.3 31.1 (30-36) % RDW 17.0 H 16.8 H (11.6-14.8) % Plt Count 13 L* 26 L* (150-400) X10^3/uL Neut % (Auto) Not Reportable Not Reportable Lymph % (Auto) Not Reportable Not Reportable [place] % (Auto) Not Reportable Not Reportable Eos % (Auto) Not Reportable Not Reportable Baso % (Auto) Not Reportable Not Reportable Lymph # (Auto) Not Reportable Not Reportable [place] # (Auto) Not Reportable Not Reportable Baso # (Auto) Not Reportable Not Reportable Total Counted 100 200 Seg Neutrophils % 12.0 L D 14.5 L (38-70) % Band Neutrophils % 0.5 L (3-7) % Lymphocytes % (Manual) 8.0 L 19.0 L (25-45) % Atypical Lymphs % 73.0 H 46.0 H ( - 0) % Monocytes % (Manual) 2.0 1.5 L (2-11) % Eosinophils % (Manual) 0.5 L (2-4) % Metamyelocytes % 2.0 H (-0) % Myelocytes % 1.5 H (-0) % Promyelocytes % 1.0 H (-0) % Blast Cells % 5.0 H 13.5 H (-0) % Neutrophils # (Manual) 63722 H 48595 H (8158-5307) /uL RBC Morphology Normal morphology Normal morphology PT (9.4-12.5) SECONDS INR (0.9-1.3) APTT (25.1-36.5) SECONDS Fibrinogen 180 L (238-498) mg/dL ABG Sample Site Right radial ABG pH 7.30 L (7.35-7.45) ABG pCO2 49.2 H (35-45) mmHg ABG pO2 61 L (80-100) mmHg ABG HCO3 24 (23-27) mmol/L ABG Total CO2 26 (23-27) mmol/L ABG O2 Saturation 88 L (95-100) % ABG Base Excess -2.0 (-2-3) mmol/L VBG pH (7.33-7.43) VBG pCO2 (45-50) mmHg VBG pO2 (35-45) mmHg VBG HCO3 (24-28) mmol/L VBG Total CO2 (24-29) mmol/L VBG O2 Saturation (70-75) % VBG Base Excess (0-4) mmol/L FiO2 100 Sodium 114 L* 116 L* (137-145) mmol/L Potassium 4.5 5.1 (3.4-5.1) mmol/L Chloride 86 L 86 L (98-107) mmol/L Carbon Dioxide 25 24 (22-32) mmol/L BUN 24 H 26 H (9-20) mg/dL Creatinine 0.95 1.00 (0.66-1.25) mg/dL Estimated GFR > 60 > 60 (>60) mL/min BUN/Creatinine Ratio 25.3 H 26.0 H (6-22) Glucose 107 H 140 H (70-100) mg/dL Lactate 1.0 (0.7-2.1) mmol/L Uric Acid (3.5-8.5) mg/dL Calcium 7.2 L 7.3 L (8.4-10.2) mg/dL Magnesium (1.6-2.3) mg/dL Total Bilirubin 1.1 1.1 (0.2-1.3) mg/dL AST 185 H 223 H (17-59) IU/L ALT 54 H 60 H (<50) IU/L Alkaline Phosphatase 174 H 195 H (38-126) U/L Lactate Dehydrogenase 3513 H (120-246) U/L Total Creatine Kinase (55-170) U/L Troponin I 0.585 H* (0.01-0.034) ng/mL NT-Pro-B Natriuret Pep (<125) pg/mL Total Protein 5.2 L 5.8 L (6.3-8.2) g/dL Albumin 2.3 L 2.6 L (3.5-5.0) g/dL Globulin 2.9 3.2 (1.7-4.1) g/dL Albumin/Globulin Ratio 0.8 L 0.8 L (1.0-2.8) TSH (0.47-4.68) uIU/mL Urine Color Urine Appearance Urine pH (4.5-8.0) Ur Specific [place] (1.000-1.035) Urine Protein (Negative) Urine Glucose (UA) (Negative) g/dL Urine Ketones (NEGATIVE) Urine Occult Blood (Negative) Urine Nitrate (Negative) Urine Bilirubin (NEGATIVE) Urine Urobilinogen (0.2) E.U./dL Ur Leukocyte Esterase (NEGATIVE) Urine RBC (0-5/HPF) Urine WBC (0-5/HPF) Ur Squamous Epith Cells (0-5/HPF) Amorphous Sediment Urine Bacteria (None) Granular Casts (None) Ur Culture Indicated? Vol Urine Centrifuged Chlamy pneumoniae PCR (Not Detect) Adenovirus (PCR) (Not Detect) B.parapertussis DNA PCR (Not Detecte) Coronavirus OC43 (PCR) (Not Detect) Coronavirus HKU1 (PCR) (Not Detect) Coronavirus 229E (PCR) (Not Detect) SARS-CoV-2 (PCR) (Not Detecte) Coronavirus NL63 (PCR) (Not Detect) Human Metapneumovir PCR (Not Detect) Influenza Type A (PCR) (Not Detect) Influenza Type B (PCR) (Not Detect) M. pneumoniae (PCR) (Not Detect) Parainfluenza 1 (PCR) (Not Detect) Parainfluenza 2 (PCR) (Not Detect) Parainfluenza 3 (PCR) (Not Detect) Parainfluenza 4 (PCR) (Not Detect) RSV (PCR) (Not Detect) Entero/Rhino (PCR) (Not Detect) Blood Type Antibody Screen 07/25/23 07/25/23 07/25/23 Range/Units 20:14 20:23 20:48 WBC (4.5-11.0) X10^3/uL RBC (4.5-5.9) X10^6/uL Hgb (13.5-17.5) g/dL Hct (41-53) % MCV (80-100) fL MCH (26-34) PG MCHC (30-36) % RDW (11.6-14.8) % Plt Count (150-400) X10^3/uL Neut % (Auto) Lymph % (Auto) [place] % (Auto) Eos % (Auto) Baso % (Auto) Lymph # (Auto) [place] # (Auto) Baso # (Auto) Total Counted Seg Neutrophils % (38-70) % Band Neutrophils % (3-7) % Lymphocytes % (Manual) (25-45) % Atypical Lymphs % ( - 0) % Monocytes % (Manual) (2-11) % Eosinophils % (Manual) (2-4) % Metamyelocytes % (-0) % Myelocytes % (-0) % Promyelocytes % (-0) % Blast Cells % (-0) % Neutrophils # (Manual) (9472-9824) /uL RBC Morphology PT (9.4-12.5) SECONDS INR (0.9-1.3) APTT (25.1-36.5) SECONDS Fibrinogen (238-498) mg/dL ABG Sample Site Left radial Left radial ABG pH 7.27 L* 7.37 (7.35-7.45) ABG pCO2 48.3 H 35.0 (35-45) mmHg ABG pO2 72 L 81 (80-100) mmHg ABG HCO3 22 L 21 L (23-27) mmol/L ABG Total CO2 24 22 L (23-27) mmol/L ABG O2 Saturation 92 L 96 (95-100) % ABG Base Excess -5.0 L -5.0 L (-2-3) mmol/L VBG pH (7.33-7.43) VBG pCO2 (45-50) mmHg VBG pO2 (35-45) mmHg VBG HCO3 (24-28) mmol/L VBG Total CO2 (24-29) mmol/L VBG O2 Saturation (70-75) % VBG Base Excess (0-4) mmol/L FiO2 100 100 Sodium (137-145) mmol/L Potassium (3.4-5.1) mmol/L Chloride (98-107) mmol/L Carbon Dioxide (22-32) mmol/L BUN (9-20) mg/dL Creatinine (0.66-1.25) mg/dL Estimated GFR (>60) mL/min BUN/Creatinine Ratio (6-22) Glucose (70-100) mg/dL Lactate (0.7-2.1) mmol/L Uric Acid (3.5-8.5) mg/dL Calcium (8.4-10.2) mg/dL Magnesium (1.6-2.3) mg/dL Total Bilirubin (0.2-1.3) mg/dL AST (17-59) IU/L ALT (<50) IU/L Alkaline Phosphatase (38-126) U/L Lactate Dehydrogenase (120-246) U/L Total Creatine Kinase (55-170) U/L Troponin I (0.01-0.034) ng/mL NT-Pro-B Natriuret Pep (<125) pg/mL Total Protein (6.3-8.2) g/dL Albumin (3.5-5.0) g/dL Globulin (1.7-4.1) g/dL Albumin/Globulin Ratio (1.0-2.8) TSH (0.47-4.68) uIU/mL Urine Color Yellow Urine Appearance Clear Urine pH 5.5 (4.5-8.0) Ur Specific Hancock 1.025 (1.000-1.035) Urine Protein 2+ H (Negative) Urine Glucose (UA) Negative (Negative) g/dL Urine Ketones Negative (NEGATIVE) Urine Occult Blood 2+ H (Negative) Urine Nitrate Negative (Negative) Urine Bilirubin Negative (NEGATIVE) Urine Urobilinogen 0.2 (0.2) E.U./dL Ur Leukocyte Esterase Negative (NEGATIVE) Urine RBC 5-10/hpf H (0-5/HPF) Urine WBC 1-5/hpf (0-5/HPF) Ur Squamous Epith Cells None seen (0-5/HPF) Amorphous Sediment 2+ Urine Bacteria Moderate (10-30) H (None) Granular Casts 1-5/lpf (None) Ur Culture Indicated? Specimen cultured Vol Urine Centrifuged 10ml (spun) Chlamy pneumoniae PCR (Not Detect) Adenovirus (PCR) (Not Detect) B.parapertussis DNA PCR (Not Detecte) Coronavirus OC43 (PCR) (Not Detect) Coronavirus HKU1 (PCR) (Not Detect) Coronavirus 229E (PCR) (Not Detect) SARS-CoV-2 (PCR) (Not Detecte) Coronavirus NL63 (PCR) (Not Detect) Human Metapneumovir PCR (Not Detect) Influenza Type A (PCR) (Not Detect) Influenza Type B (PCR) (Not Detect) M. pneumoniae (PCR) (Not Detect) Parainfluenza 1 (PCR) (Not Detect) Parainfluenza 2 (PCR) (Not Detect) Parainfluenza 3 (PCR) (Not Detect) Parainfluenza 4 (PCR) (Not Detect) RSV (PCR) (Not Detect) Entero/Rhino (PCR) (Not Detect) Blood Type Antibody Screen 07/25/23 Range/Units 21:42 WBC (4.5-11.0) X10^3/uL RBC (4.5-5.9) X10^6/uL Hgb (13.5-17.5) g/dL Hct (41-53) % MCV (80-100) fL MCH (26-34) PG MCHC (30-36) % RDW (11.6-14.8) % Plt Count (150-400) X10^3/uL Neut % (Auto) Lymph % (Auto) [place] % (Auto) Eos % (Auto) Baso % (Auto) Lymph # (Auto) [place] # (Auto) Baso # (Auto) Total Counted Seg Neutrophils % (38-70) % Band Neutrophils % (3-7) % Lymphocytes % (Manual) (25-45) % Atypical Lymphs % ( - 0) % Monocytes % (Manual) (2-11) % Eosinophils % (Manual) (2-4) % Metamyelocytes % (-0) % Myelocytes % (-0) % Promyelocytes % (-0) % Blast Cells % (-0) % Neutrophils # (Manual) (0892-3701) /uL RBC Morphology PT (9.4-12.5) SECONDS INR (0.9-1.3) APTT (25.1-36.5) SECONDS Fibrinogen (238-498) mg/dL ABG Sample Site ABG pH (7.35-7.45) ABG pCO2 (35-45) mmHg ABG pO2 (80-100) mmHg ABG HCO3 (23-27) mmol/L ABG Total CO2 (23-27) mmol/L ABG O2 Saturation (95-100) % ABG Base Excess (-2-3) mmol/L VBG pH 7.30 L (7.33-7.43) VBG pCO2 45.9 (45-50) mmHg VBG pO2 37 (35-45) mmHg VBG HCO3 23 L (24-28) mmol/L VBG Total CO2 24 (24-29) mmol/L VBG O2 Saturation 65 L (70-75) % VBG Base Excess -4.0 L (0-4) mmol/L FiO2 100 Sodium (137-145) mmol/L Potassium (3.4-5.1) mmol/L Chloride (98-107) mmol/L Carbon Dioxide (22-32) mmol/L BUN (9-20) mg/dL Creatinine (0.66-1.25) mg/dL Estimated GFR (>60) mL/min BUN/Creatinine Ratio (6-22) Glucose (70-100) mg/dL Lactate (0.7-2.1) mmol/L Uric Acid (3.5-8.5) mg/dL Calcium (8.4-10.2) mg/dL Magnesium (1.6-2.3) mg/dL Total Bilirubin (0.2-1.3) mg/dL AST (17-59) IU/L ALT (<50) IU/L Alkaline Phosphatase (38-126) U/L Lactate Dehydrogenase (120-246) U/L Total Creatine Kinase (55-170) U/L Troponin I (0.01-0.034) ng/mL NT-Pro-B Natriuret Pep (<125) pg/mL Total Protein (6.3-8.2) g/dL Albumin (3.5-5.0) g/dL Globulin (1.7-4.1) g/dL Albumin/Globulin Ratio (1.0-2.8) TSH (0.47-4.68) uIU/mL Urine Color Urine Appearance Urine pH (4.5-8.0) Ur Specific Hancock (1.000-1.035) Urine Protein (Negative) Urine Glucose (UA) (Negative) g/dL Urine Ketones (NEGATIVE) Urine Occult Blood (Negative) Urine Nitrate (Negative) Urine Bilirubin (NEGATIVE) Urine Urobilinogen (0.2) E.U./dL Ur Leukocyte Esterase (NEGATIVE) Urine RBC (0-5/HPF) Urine WBC (0-5/HPF) Ur Squamous Epith Cells (0-5/HPF) Amorphous Sediment Urine Bacteria (None) Granular Casts (None) Ur Culture Indicated? Vol Urine Centrifuged Chlamy pneumoniae PCR (Not Detect) Adenovirus (PCR) (Not Detect) B.parapertussis DNA PCR (Not Detecte) Coronavirus OC43 (PCR) (Not Detect) Coronavirus HKU1 (PCR) (Not Detect) Coronavirus 229E (PCR) (Not Detect) SARS-CoV-2 (PCR) (Not Detecte) Coronavirus NL63 (PCR) (Not Detect) Human Metapneumovir PCR (Not Detect) Influenza Type A (PCR) (Not Detect) Influenza Type B (PCR) (Not Detect) M. pneumoniae (PCR) (Not Detect) Parainfluenza 1 (PCR) (Not Detect) Parainfluenza 2 (PCR) (Not Detect) Parainfluenza 3 (PCR) (Not Detect) Parainfluenza 4 (PCR) (Not Detect) RSV (PCR) (Not Detect) Entero/Rhino (PCR) (Not Detect) Blood Type Antibody Screen [facility] Narrative Medical decision making narrative: 07/26/2023 Dr. Rivas: Patient signed out to myself by Dr. Munoz, patient family has decided upon comfort measures. Patient has 4th ventricle hemorrhage with parenchymal extension including supratentorial space with upwards transtentorial herniation and hydrocephalus. White count of 326, hemoglobin of 6 platelets of 26 with 46% atypical lymphs, 13% blasts. Sodium 160s most recently with verbal creatinine 8, potassium of 5 would elevation of LFTs. Patient did have a positive troponin earlier. Patient had been intubated and is on pressors currently. Plan to to extubate once additional family has arrived, likely imminent. Patient family elected not be present, do not wish for a call afterwards. All questions answered by myself. Patient seen and evaluated by myself. Patient pressors stopped and extubated and shortly thereafter. Time of at 2310. Updated patient primary care physician Dr. Mathew that patient in department last night. Discharge Plan Departure Patient Disposition: Clinical Impression: Intracranial hemorrhage, Brain herniation Date/Time: 07/25/23 23:10
[2023-07-25 13:14] LABS: INR 1.4 (0.9-1.3); Prothrombin Time 16.4 SECONDS (9.4-12.5)
[2023-07-25] MEDS: SODIUM CHLORIDE 0.9% 1,000 ML 1000 ML IV (13:16)
[2023-07-25 13:18] LABS: PTT Partial Thromboplastin Tim 27 SECONDS (25.1-36.5)
[2023-07-25] MEDS: PIPERACILLIN/TAZO 4.5 GM in SODIUM CHLORIDE 0.9% 100 ML IV (13:19)
[2023-07-25 13:21] LABS: Magnesium 2.1 mg/dL (1.6-2.3); Uric Acid 3.8 mg/dL (3.5-8.5)
[2023-07-25 13:26] LABS: Creatine Kinase 2204 U/L (55-170)
[2023-07-25 13:30] LABS: NT-proBNP (BNP-Adult 18+) 749 pg/mL (<125)
[2023-07-25 13:34] LABS: Hematocrit 24.9 % (41-53); Hemoglobin 7.4 g/dL (13.5-17.5); Mean Corpuscular HGB Conc 29.9 % (30-36); Mean Corpuscular Hemoglobin 28.2 PG (26-34); Mean Corpuscular Volume 94.6 fL (80-100); Platelet Count 21 X10^3/uL (150-400); Red Blood Cell Count 2.63 X10^6/uL (4.5-5.9); Red Cell Distribution Width 16.8 % (11.6-14.8)
[2023-07-25 13:36] LABS: Alanine Aminotransferase 62 IU/L (<50); Albumin 2.9 g/dL (3.5-5.0); Albumin Globulin Ratio 0.9 (1.0-2.8); Alkaline Phosphatase 214 U/L (38-126); Aspartate Aminotransferase 220 IU/L (17-59); Bilirubin Total 1.1 mg/dL (0.2-1.3); Blood Urea Nitrogen 25 mg/dL (9-20); Calcium 8.3 mg/dL (8.4-10.2); Estimated Glomerular Filt Rate > 60 mL/min (>60); Globulin 3.4 g/dL (1.7-4.1); Glucose 120 mg/dL (70-100); HEMOLYSIS 15 (0-50); Total Protein 6.3 g/dL (6.3-8.2)
[2023-07-25 13:37] LABS: Add Manual Diff / Slide Review YES; White Blood Cell Count 288.2 X10^3/uL (4.5-11.0)
[2023-07-25 13:49] LABS: Neutrophils Absolute Manual 11528 /uL (3000-5900); Total Cells Counted 50
[2023-07-25 13:50] LABS: RBC Morphology Normal Morphology
[2023-07-25 13:57] LABS: Troponin I 0.436 ng/mL (0.01-0.034)
[2023-07-25 13:58] LABS: Sodium 113 mmol/L (137-145)
[2023-07-25 13:59] LABS: Carbon Dioxide 22 mmol/L (22-32); Chloride 83 mmol/L (98-107); Potassium 5.1 mmol/L (3.4-5.1)
[2023-07-25] MEDS: VANCOMYCIN 1,000 MG/200 ML PIGGYBACK 200 MG IV (14:01)
[2023-07-25 14:06] LABS: Thyroid Stimulating Hormone 5.83 uIU/mL (0.47-4.68)
[2023-07-25 14:36] LABS: Adenovirus Not Detected (Not Detect); B. parapertussis Not Detected (Not Detecte); Bordetella pertussis Not Detected (Not Detect); Chlamydophila pneumoniae Not Detected (Not Detect); Coronavirus 229E Not Detected (Not Detect); Coronavirus HKU1 Not Detected (Not Detect); Coronavirus NL 63 Not Detected (Not Detect); Coronavirus OC43 Not Detected (Not Detect); Human Metapneumovirus Not Detected (Not Detect); Human Rhinovirus/Enterovirus Not Detected (Not Detect); Influenza A Not Detected (Not Detect); Influenza B Not Detected (Not Detect); Mycoplasma pneumoniae Not Detected (Not Detect); Parainfluenza Virus 1 Not Detected (Not Detect); Parainfluenza Virus 2 Not Detected (Not Detect); Parainfluenza Virus 3 Not Detected (Not Detect); Parainfluenza Virus 4 Not Detected (Not Detect); Respiratory Syncytial Virus Not Detected (Not Detect); SARS- CoV-2 Not Detected (Not Detecte)
--- NOTE | 2023-07-25 15:42 | PC.NURSE ---
Addendum entered by Jayshree Toussaint CNA 07/25/23 21:28: 2010- spoke with prov/moldovan to page neurosurgery 0- [facility] returned page for neurosurgery Addendum entered by Emerita Vasquez CNA 07/25/23 18:15: 1815- [facility], spoke to Divina, was told no wait list at the moment and to please call back in 4 or more hours Addendum entered by Emerita Vasquez CNA 07/25/23 18:05: 1755-[place]/Prov, spoke to Kojo, patient on wait list Original Note: Hospital Call List for patient transfer 1526- [facility], spoke to Lilliana, patient on wait list 1542- [facility], spoke to Elva, patient on wait list
[2023-07-25 15:45] LABS: Mean Corpuscular HGB Conc 30.3 % (30-36); Mean Corpuscular Hemoglobin 28.8 PG (26-34); Red Blood Cell Count 2.15 X10^6/uL (4.5-5.9)
[2023-07-25 15:49] LABS: Add Manual Diff / Slide Review YES; Hematocrit 20.4 % (41-53); Hemoglobin 6.2 g/dL (13.5-17.5); Platelet Count 13 X10^3/uL (150-400); White Blood Cell Count 251.9 X10^3/uL (4.5-11.0)
[2023-07-25 16:02] LABS: Neutrophils Absolute Manual 30228 /uL (3000-5900); Total Cells Counted 100
[2023-07-25 16:05] LABS: Alanine Aminotransferase 54 IU/L (<50); Albumin 2.3 g/dL (3.5-5.0); Albumin Globulin Ratio 0.8 (1.0-2.8); Alkaline Phosphatase 174 U/L (38-126); Aspartate Aminotransferase 185 IU/L (17-59); BUN Creatinine Ratio 25.3 (6-22); Bilirubin Total 1.1 mg/dL (0.2-1.3); Blood Urea Nitrogen 24 mg/dL (9-20); Calcium 7.2 mg/dL (8.4-10.2); Carbon Dioxide 25 mmol/L (22-32); Chloride 86 mmol/L (98-107); Estimated Glomerular Filt Rate > 60 mL/min (>60); Globulin 2.9 g/dL (1.7-4.1); Glucose 107 mg/dL (70-100); HEMOLYSIS 16 (0-50); Potassium 4.5 mmol/L (3.4-5.1); RBC Morphology Normal Morphology; Total Protein 5.2 g/dL (6.3-8.2)
[2023-07-25 16:16] LABS: Sodium 114 mmol/L (137-145)
[2023-07-25 16:38] LABS: Troponin I 0.585 ng/mL (0.01-0.034)
[2023-07-25 17:07] LABS: Lactate Dehydrogenase 3513 U/L (120-246)
[2023-07-25] MEDS: KETAMINE 500 MG/5 ML INJ 100 MG IV (19:27)
[2023-07-25] MEDS: ROCURONIUM 50 MG/5 ML INJ 100 MG IV (19:28)
--- NOTE | 2023-07-25 19:29 | DI.RAD.S_ITS ---
PROCEDURE: XR CHEST 1V INDICATIONS: post intubation TECHNIQUE: One view of the chest was acquired. COMPARISON: [facility], CR, XR CHEST 1V, 07/25/2023, 13:02. FINDINGS: Surgical changes and devices: ET tube terminates in the mid trachea. Enteric tube terminates in the proximal stomach, consider slight further advancement to secure positioning. Percutaneous pacing pads in place. Lungs and pleura: Low lung volumes. Left perihilar and right lower lung opacities are present. Possible small effusions. Mediastinum: Cardiomediastinal contours are unchanged. Bones and chest wall: Degenerative changes. IMPRESSION: ET tube is in the mid trachea. Enteric tube could be advanced slightly to secure positioning, currently terminating in the proximal stomach. Possible left perihilar and right lower lung opacities and small effusions. These may be atelectasis or airspace disease. Consider future imaging surveillance to assess for resolution. Dictated by: Brian Salazar M.D. on 07/25/2023 at 20:15 Approved by: Brian Salazar M.D. on 07/25/2023 at 20:16
--- NOTE | 2023-07-25 19:31 | DI.CT.S_ITS ---
PROCEDURE: CT CHEST WO CON INDICATIONS: complex failure TECHNIQUE: Noncontrast 5 mm thick sections acquired from the pulmonary apices to the posterior costophrenic angles. 1 mm lung window, 5 mm thick coronal and sagittal and 7 mm axial MIP reformats were then acquired. For radiation dose reduction, the following was used: automated exposure control, adjustment of mA and/or kV according to patient size. COMPARISON: [facility], CT, CT ANGIO CHEST PE PROTOCOL, 07/25/2023, 13:56. FINDINGS: Image quality: Diagnostic Lungs and pleura: ET tube terminates in the mid trachea. Enteric tube terminates in the proximal stomach and could be advanced to secure positioning. Bibasilar consolidations have slightly increased even in the short interval. Upper lobe septal thickening and mild opacities also seen. Small effusions. Mediastinum, heart, and esophagus: Not well evaluated on this noncontrast imaging. No pathologic lymph nodes by size criteria. Prominent lymph nodes may be reactive in this setting. Chest wall and thyroid: Unremarkable Upper abdomen: No gross abnormality on these noncontrast images. Bones: Degenerative findings, no acute or suspicious changes. IMPRESSION: Bibasilar consolidations have slightly increased. These are presumed to be infectious/inflammatory, possibly aspiration as well. Small pleural effusions. Upper lobe involvement also seen to a milder extent. Consider future imaging surveillance to assess for resolution. ET tube is in appropriate position. Consider advancement of the enteric tube, which currently terminates in the proximal stomach. Other findings above. Dictated by: Brian Salazar M.D. on 07/25/2023 at 20:17 Approved by: Brian Salazar M.D. on 07/25/2023 at 20:20
--- NOTE | 2023-07-25 19:32 | DI.CT.S_ITS ---
PROCEDURE: CT HEAD/BRAIN WO CON INDICATIONS: resp failure TECHNIQUE: Noncontrast 4.5 mm thick angled axial sections acquired from the foramen magnum to the vertex, with coronal and sagittal reformats. For radiation dose reduction, the following was used: automated exposure control, adjustment of mA and/or kV according to patient size. COMPARISON: None. FINDINGS: Image quality: Diagnostic CSF spaces: There is effacement of the basal cisterns and dilation of the temporal horns. Volume: Generally maintained. Brain: Hemorrhage centered in the 4th ventricle, likely extending into brainstem and cerebellar parenchyma, with some components in the basal ganglia and supra tentorial cisterns. Craniofacial structures: No paranasal sinus opacification. IMPRESSION: Fourth ventricle hemorrhage, with parenchymal extension, including some components in the supratentorial space. There is upward transtentorial herniation, and hydrocephalus. Consider further workup for underlying etiologies, such as mass or vascular, and neuro surgical consultation. Called to the ED. Dictated by: Brian Salazar M.D. on 07/25/2023 at 19:56 Approved by: Brian Salazar M.D. on 07/25/2023 at 19:59
[2023-07-25] MEDS: propofoL 1,000 MG/100 ML VIAL 5.307 MG IV (19:53)
[2023-07-25] MEDS: SODIUM CHLORIDE 3 % 50 ML 600 ML IV (19:54)
[2023-07-25] MEDS: TRANEXAMIC ACID 1,000 MG in SODIUM CHLORIDE 0.9% 100 ML 200 MG IV (19:56)
[2023-07-25 20:10] LABS: Hematocrit 21.1 % (41-53); Mean Corpuscular HGB Conc 31.1 % (30-36); Mean Corpuscular Hemoglobin 27.9 PG (26-34); Mean Corpuscular Volume 89.7 fL (80-100); Red Blood Cell Count 2.36 X10^6/uL (4.5-5.9); Red Cell Distribution Width 16.8 % (11.6-14.8)
[2023-07-25] MEDS: ACETAMINOPHEN IV 1,000 MG/100 ML VIAL 400 MG IV (20:12)
[2023-07-25] MEDS: LABETALOL 20 MG/4 ML SYRINGE 10 MG IV (20:13)
[2023-07-25 20:14] LABS: Fibrinogen 180 mg/dL (238-498)
[2023-07-25 20:17] LABS: Alanine Aminotransferase 60 IU/L (<50); Albumin 2.6 g/dL (3.5-5.0); Albumin Globulin Ratio 0.8 (1.0-2.8); Alkaline Phosphatase 195 U/L (38-126); Aspartate Aminotransferase 223 IU/L (17-59); Bilirubin Total 1.1 mg/dL (0.2-1.3); Blood Urea Nitrogen 26 mg/dL (9-20); Calcium 7.3 mg/dL (8.4-10.2); Carbon Dioxide 24 mmol/L (22-32); Chloride 86 mmol/L (98-107); Estimated Glomerular Filt Rate > 60 mL/min (>60); Globulin 3.2 g/dL (1.7-4.1); Glucose 140 mg/dL (70-100); HEMOLYSIS 20 (0-50); Potassium 5.1 mmol/L (3.4-5.1); Total Protein 5.8 g/dL (6.3-8.2)
[2023-07-25 20:18] LABS: Add Manual Diff / Slide Review YES; Hemoglobin 6.6 g/dL (13.5-17.5); Platelet Count 26 X10^3/uL (150-400); White Blood Cell Count 326.4 X10^3/uL (4.5-11.0)
[2023-07-25] MEDS: SODIUM CHLORIDE 3 % 250 ML 750 ML IV (20:19)
[2023-07-25 20:20] LABS: Sodium 116 mmol/L (137-145)
[2023-07-25 20:32] LABS: Appearance Urine UA CLEAR; Bilirubin Urine UA NEGATIVE (NEGATIVE); Color Urine UA YELLOW; Glucose Urine UA NEGATIVE (Negative); Ketones Urine UA NEGATIVE (NEGATIVE); Leukocyte Esterase Urine UA NEGATIVE (NEGATIVE); Nitrite Urine UA NEGATIVE (Negative); Occult Blood Urine UA 2+ (Negative); Protein Urine UA 2+ (Negative); Specific Gravity Urine UA 1.025 (1.000-1.035); Urobilinogen Urine UA 0.2 E.U./dL (0.2); pH Urine UA 5.5 (4.5-8.0)
[2023-07-25 20:34] LABS: Band Neutrophils Percent 0.5 % (3-7); Blastocytes Percent 13.5 % (-0); Eosinophils Percent Manual 0.5 % (2-4); Monocytes Percent Manual 1.5 % (2-11); Myelocytes Percent 1.5 % (-0); Neutrophils Absolute Manual 48960 /uL (3000-5900); RBC Morphology Normal Morphology; Segmented Neutrophils Percent 14.5 % (38-70); Total Cells Counted 200
[2023-07-25] MEDS: NOREPINEPHRINE BITARTRATE/D5W 4 MG/250 ML PLAST..BAG 30 MG IV (20:44)
[2023-07-25 20:46] LABS: Bacteria Urine Moderate (10-30); RBC Urine 5-10/HPF (0-5/HPF); Squamous Epithelial Cell Urine None Seen (0-5/HPF); Urine Volume 10mL (spun); WBC Urine 1-5/HPF (0-5/HPF)
[2023-07-25 20:47] LABS: Amorphous Sediment Urine 2+; Culture Indicated Urine Specimen Cultured; Granular Casts Urine 1-5/LPF
--- NOTE | 2023-07-25 20:47 | PC.NURSE ---
Patient had been sleeping for 2-3 hours; pts Ofelia and RN discussed waking him for tylenol but based upon the fact that he had not been sleeping well lately, it was determined he could rest. Vitals were stable at that time. At approximately 1910, Ofelia came out to get the RN stating the pts breathing had changed; the team immediately assessed him and found him to be making a coughing sound and was unresponsive. the MD immediately came to bedside and he was emergently intubated and rushed patient to CT scan (chest and head) and a large head bleed was found. Pt was transferred to room 1 for ongoing ICU level care. He had 2 more large bore ivs placed, temp catheter placed, q5min vitals, and medications as documented in JUL. Multiple calls to other hospitals including [facility] and [facility]/ were placed. Given labetolol for hypertension; pt then became hypotensive, levophed was started.
--- NOTE | 2023-07-25 21:14 | PC.NURSE ---
patient's 's mother has arrived and her daughter is on the way from [place]. They have been notified by the MD that his condition is terminal.
[2023-07-25 21:21] LABS: Fractionated Inspired Oxygen 100; HCO3 ABG 24 mmol/L (23-27); Oxygen Saturation ABG 88 % (95-100); PCO2 ABG 49.2 mmHg (35-45); PO2 ABG 61 mmHg (80-100); TCO2 ABG 26 mmol/L (23-27)
[2023-07-25 21:22] LABS: Allen Test for ABG Passed? Yes, Passed; Blood Gas Collection Site Right Radial
[2023-07-25 21:26] LABS: pH ABG 7.27 (7.35-7.45)
[2023-07-25 21:28] LABS: Allen Test for ABG Passed? Yes, Passed; Blood Gas Collection Site Left Radial; Fractionated Inspired Oxygen 100; HCO3 ABG 22 mmol/L (23-27); Oxygen Saturation ABG 92 % (95-100); PCO2 ABG 48.3 mmHg (35-45); PO2 ABG 72 mmHg (80-100); TCO2 ABG 24 mmol/L (23-27)
[2023-07-25] MEDS: PROTHROMBIN CPLX(PCC)4FACT 3,500 UNIT in ISOOSMOTIC VEHICLE 0 ML 636.847 UNIT IV (21:35)
[2023-07-25 22:18] LABS: Allen Test for ABG Passed? Yes, Passed; Blood Gas Collection Site Left Radial; Fractionated Inspired Oxygen 100; HCO3 ABG 21 mmol/L (23-27); Oxygen Saturation ABG 96 % (95-100); PO2 ABG 81 mmHg (80-100); TCO2 ABG 22 mmol/L (23-27); pH ABG 7.37 (7.35-7.45)
--- NOTE | 2023-07-25 22:19 | PC.NURSE ---
Patient's , daughter, and [id number] are in agreement to not proceed with pursuing care. Discussed need to select a facility to send his body to.
[2023-07-25 22:22] LABS: Fractionated Inspired Oxygen 100; HCO3 VBG 23 mmol/L (24-28); Oxygen Saturation VBG 65 % (70-75); PCO2 VBG 45.9 mmHg (45-50); PO2 VBG 37 mmHg (35-45); Total CO2 VBG 24 mmol/L (24-29)
--- NOTE | 2023-07-25 22:43 | PC.NURSE ---
Family has decided upon [facility] in [place]; [phone]
--- NOTE | 2023-07-25 22:52 | PC.NURSE ---
Patient's family left after deciding upon a home; they wished to leave prior to withdrawal of care and agree with the prognosis and plan.
[2023-07-25] MEDS: MORPHINE 4 MG/ML INJ IV (22:57)
--- NOTE | 2023-07-25 23:10 | PC.NURSE ---
Patient was removed from ventilatory support and levophed at 2300 and was given 4mg morphine as ordered. He at 2310.
--- NOTE | 2023-07-25 23:56 | PC.NURSE ---
Called donor inquiry, client experience manager called at 2330 case # [id number], but no autopsy, called [facility] to pick patient up. time of arrival aug 99
--- NOTE | 2023-07-26 00:22 | RT ---
Addendum entered by Cheri Ho 07/26/23 07:18: Dr. Munoz verbal to extubate, family at bedside Original Note: Terminal extubation at 2330 pt passed within 5 minutes of tube being pulled
== END 2023-07-26 01:17 | disposition expired ==
PROVIDERS: Emergency Medicine; Emergency Provider Emergency Medicine; PCP Family Medicine
DX: G93.5 Compression of brain (principal); I62.9 Nontraumatic intracranial hemorrhage, unspecified; R06.82 Tachypnea, not elsewhere classified; R50.9 Fever, unspecified; C95.90 Leukemia, unspecified not having achieved remission; Z20.822 Contact with and (suspected) exposure to COVID-19
CPT/HCPCS: 31500; 36415; 36600; 70450; 71045; 71250; 71275; 80053; 81001; 82550; 82805; 83605; 83615; 83735; 83880; 84443; 84484; 84550; 85007; 85025; 85384; 85610; 85730; 86850; 86900; 86901; 87040; 87086; 87633; 93005; 96365; 96367; 96368; 96375; 99285; J0136; J2270; J2543; J2704; J7168; Q9967